=== PATIENT | male | born 1960 | race Caucasian/White ===

== ENCOUNTER → 2016-04-23 | Outpatient (CLI) | payer BC ==
[~2016-04-23] MED LIST: ASPI-232 PO; BUPR-79 PO; CITA10TA4 PO; HYDR12.56 PO; IBUP-1050 PO; LPR50 PO; NAPR1TAB9 PO; ULT50X PO
--- NOTE | 2016-04-23 16:53 | DIAGNOSTIC IMAGING REPORT ---
MRI OF THE LEFT SHOULDER CLINICAL HISTORY: Left shoulder pain. COMPARISON STUDY: No priors. TECHNIQUE: MRI of the left shoulder was performed utilizing various T1 and T2 weighted sequences in the axial, sagittal, coronal planes. IV contrast was not administered for this examination. Note that interpretation is suboptimal without plain film correlate. The examination is modestly degraded by motion artifact. FINDINGS: Rotator cuff: There is tendinopathy of the supraspinatous tendon. There is mild tearing along the bursal surface seen at the musculotendinous junction. There is also a small full-thickness rim rent tear. This is located approximately 9 mm from the leading edge. No musculotendinous retraction is seen. There is minimal tendinopathy of the infraspinatus tendon which appears intact. The teres minor and subscapularis tendons are intact. There is trace subacromial and subdeltoid bursal fluid. Productive degenerative changes noted at the acromioclavicular joint articulation with mild marrow edema. Biceps tendon: The long head of the biceps tendon is normal in signal intensity and located within the bicipital groove. The anchor is maintained. Labrum: A small SLAP tear is identified. Shoulder joint: There is no joint effusion. The articular cartilage over the glenoid is well maintained. There is no MRI evidence of fracture. Minimal arthritic changes seen in the greater tuberosity of the humeral head. Musculature and soft tissues: The musculature of the shoulder is normal in bulk and signal intensity. No atrophy is seen. IMPRESSION: 1. There is tendinopathy of the supraspinatous tendon. A small full-thickness rim rent tear is identified. There is also partial thickness tearing on the bursal surface at the muscular tendinous junction. 2. There is trace associated subcoracoid and subdeltoid bursal fluid. 3. Productive degenerative change is seen at the acromio clavicular articulation with mild marrow edema. 4. There is a small SLAP tear of the glenoid labrum. Electronically signed by: Pranav Longo M.D. 04/23/2016 4:52 PM Dictated Date/Time: 04/23/2016 4:47 PM
== END | disposition home or self-care (01) ==
LOC: C.MRI 15:29
PROVIDERS: ATTEND Family Medicine
DX: M25.512 Pain in left shoulder (principal); S46.802A Unspecified injury of other muscles, fascia and tendons at shoulder and upper arm level, left arm, initial encounter; X58.XXXA Exposure to other specified factors, initial encounter

== ENCOUNTER → 2017-03-21 | Outpatient (CLI) | payer BC ==
--- NOTE | 2017-03-21 11:09 | DIAGNOSTIC IMAGING REPORT ---
LEFT LOWER EXTREMITY VENOUS DOPPLER CLINICAL HISTORY: Left leg swelling. COMPARISON STUDY: No previous studies for comparison. TECHNIQUE: Sonography of the deep venous system of the left lower extremity was performed. Compression and augmentation were evaluated. FINDINGS: The common femoral, superficial femoral and popliteal veins were compressible. Augmentation was normal. Flow was shown within the deep calf vessels. IMPRESSION: No evidence of deep venous thrombus within the left lower extremity. Electronically signed by: Lucius Miller M.D. 03/21/2017 11:07 AM Dictated Date/Time: 03/21/2017 11:06 AM
--- NOTE | 2017-03-21 11:51 | DIAGNOSTIC IMAGING REPORT ---
ABDOMEN 2VIEW W/PA CHEST RTN CLINICAL HISTORY: Abdominal pain. Left leg swelling. COMPARISON STUDY: Chest x-ray dated 10/19/2013 FINDINGS: The heart is mildly enlarged. There is no free air. There is no focal pulmonary consolidation. There are no abnormally dilated loops of large or small bowel. IMPRESSION: No evidence of bowel obstruction. No evidence of free air. Electronically signed by: Ketan Cedeno M.D. 03/21/2017 11:50 AM Dictated Date/Time: 03/21/2017 11:49 AM
== END | disposition home or self-care (01) ==
LOC: C.ULTRBC 10:35
PROVIDERS: ATTEND Family Medicine
DX: R60.0 Localized edema (principal)

== ENCOUNTER → 2017-03-26 | Outpatient (CLI) | payer BC ==
--- NOTE | 2017-03-26 17:51 | ECHOCARDIOGRAM REPORT ---
*NOTICE TO RECEIVING [employer] This information is strictly Confidential and protected under [place] law. [place] law prohibits you from making any further disclosure of this information unless further disclosure is expressly permitted by the written consent of the person to whom it pertains or is authorized by law. A general authorization for the release of medical or other information is not sufficient for this purpose. Hospital accepts no responsibility if the information is made available to any other person, INCLUDING THE PATIENT. Interpretation Summary * Name: CHACORTA CALVILLO Study Date: 03/26/2017 02:47 PM BP: 139/80 mmHg * Patient Location: [facility] HR: 62 * : 1960 (M/d/yyyy) Gender: Male Height: 71 in * Age: 56 yrs Ethnicity: [place] Weight: 270 lb * Ordering Physician: Ken Combs * Referring Physician: Ken Combs * Performed By: Yoselin Mukherjee RDCS * * Reason For Study: Cardiomegaly * BSA: 2.4 m2 * -- Conclusions -- * 1. Technically limited study. * 2. Grossly normal LV size and wall thickness. * 3. Grossly normal LV function. LVEF 55-60% * 4. RV not well visualized. Grossly normal size and function. * 5. Mild mitral regurgitation * 6. [id number] tricuspid regurgitation. No significant pulmonary hypertension. * 7. Compared with prior study on 10/24/2013: No significant change Procedure Details * A complete two-dimensional transthoracic echocardiogram was performed (2D, M-mode, Doppler and color flow Doppler). Left Ventricle * The left ventricle is grossly normal size. * Ejection Fraction = 55-60%. * No regional wall motion abnormalities noted. Right Ventricle * The right ventricle is grossly normal size. * The right ventricular systolic function is normal as assessed by tricuspid annular plane systolic excursion (TAPSE) (normal >1.5 cm). Atria * The left atrium is moderately dilated. * The right atrium is mildly dilated. Mitral Valve * The mitral valve is grossly normal. * Mitral stenosis is absent. * There is mild mitral regurgitation. Tricuspid Valve * There is mild to moderate tricuspid regurgitation. Aortic Valve * Aortic valve sclerosis mild, without significant aortic valvular stenosis. * No hemodynamically significant valvular aortic stenosis. * There is no significant aortic regurgitation. Pulmonic Valve * The pulmonary valve is inadequately visualized, but the Doppler data is adequate for interpretation. * Pulmonic stenosis is absent. * There is no significant pulmonary regurgitation. Great Vessels * The aortic root and proximal ascending aorta are normal sized. Pericardium/Pleural * There is no pericardial effusion. MMode 2D Measurements and Calculations IVSd 1.1 cm IVSs 1.3 cm LVIDd 4.1 cm LVIDs 2.5 cm LVPWd 1.0 cm LVPWs 1.1 cm IVS/LVPW 1.1 FS 38.9 % EDV(Teich) 75.1 ml ESV(Teich) 22.7 ml EF(Teich) 69.8 % EDV(cubed) 70.0 ml ESV(cubed) 16.0 ml EF(cubed) 77.2 % % IVS thick 21.0 % % LVPW thick 8.7 % LV mass(C)d 146.4 grams LV mass(C)dI 61.1 grams/m\S\2 LV mass(C)s 90.0 grams LV mass(C)sI 37.6 grams/m\S\2 SV(Teich) 52.4 ml SI(Teich) 21.9 ml/m\S\2 SV(cubed) 54.0 ml SI(cubed) 22.5 ml/m\S\2 Ao root diam 3.7 cm Ao root area 10.5 cm\S\2 ACS 2.2 cm LA dimension 4.0 cm LA/Ao 1.1 LVAd ap4 25.7 cm\S\2 LVLd ap4 6.9 cm EDV(MOD-sp4) 82.2 ml EDV(sp4-el) 81.4 ml LVAs ap4 12.5 cm\S\2 LVLs ap4 5.6 cm ESV(MOD-sp4) 25.7 ml ESV(sp4-el) 23.7 ml EF(MOD-sp4) 68.8 % EF(sp4-el) 70.9 % LVAd ap2 24.5 cm\S\2 LVLd ap2 7.3 cm EDV(MOD-sp2) 75.4 ml EDV(sp2-el) 70.0 ml LVAs ap2 13.9 cm\S\2 LVLs ap2 6.0 cm ESV(MOD-sp2) 29.4 ml ESV(sp2-el) 27.3 ml EF(MOD-sp2) 61.0 % EF(sp2-el) 61.0 % LVLd %diff 5.7 % EDV(MOD-bp) 78.4 ml LVLs %diff 6.4 % ESV(MOD-bp) 27.6 ml EF(MOD-bp) 64.8 % SV(MOD-sp4) 56.5 ml SI(MOD-sp4) 23.6 ml/m\S\2 SV(MOD-sp2) 46.1 ml SI(MOD-sp2) 19.2 ml/m\S\2 SV(MOD-bp) 50.8 ml SI(MOD-bp) 21.2 ml/m\S\2 SV(sp4-el) 57.8 ml SI(sp4-el) 24.1 ml/m\S\2 SV(sp2-el) 42.7 ml SI(sp2-el) 17.8 ml/m\S\2 Doppler Measurements and Calculations MV E max johnson 70.3 cm/sec MV A max johnson 57.8 cm/sec MV E/A 1.2 MV dec time 0.20 sec Ao V2 max 148.9 cm/sec Ao max PG 8.9 mmHg Ao max PG (full) 1.4 mmHg LV V1 max PG 7.4 mmHg LV V1 max 136.4 cm/sec PA V2 max 78.3 cm/sec PA max PG 2.5 mmHg TR max johnson 177.5 cm/sec
== END | disposition home or self-care (01) ==
LOC: C.CPL 14:41
PROVIDERS: ATTEND Family Medicine
DX: I51.7 Cardiomegaly (principal)

== ENCOUNTER → 2017-04-02 | Outpatient (CLI) | payer BC ==
--- NOTE | 2017-04-02 12:29 | DIAGNOSTIC IMAGING REPORT ---
L ANKLE MIN 3 VIEWS ROUTINE CLINICAL HISTORY: LEFT ANKLE PAIN pain COMPARISON: None. DISCUSSION: The bones and joint spaces appear intact. There is no evidence of fracture, dislocation or bony disease. Small heel spur. Significant ossification Achilles tendon insertion. IMPRESSION: 1. Small heel spur. 2. Significant ossification Achilles tendon insertion. 3. Otherwise negative study The above report was generated using voice recognition software. It may contain grammatical, syntax or spelling errors. Electronically signed by: Fitz Gilbert M.D. 04/02/2017 12:28 PM Dictated Date/Time: 04/02/2017 12:27 PM
== END | disposition home or self-care (01) ==
LOC: C.RADBC 11:58
PROVIDERS: ATTEND Family Medicine
DX: M25.572 Pain in left ankle and joints of left foot (principal)